=== PATIENT | male | born 1975 | race Caucasian/White ===

== ENCOUNTER 2017-10-23 11:13 | Day surgery (SDC) | payer OTHER ==
[~2017-10-23] VITALS: Ht 180.3 cm; Wt 73.5 kg
[~2017-10-23 11:13] MED LIST: PREVACID30 MG PO; ROXICODONE5 MG PO
== END 2017-10-23 12:17 | disposition home or self-care (01) ==
LOC: PAIN 11:13 → SDC 11:45 → PAIN 11:45
DX: M54.16 Radiculopathy, lumbar region (principal); M51.26 Other intervertebral disc displacement, lumbar region; M46.96 Unspecified inflammatory spondylopathy, lumbar region; M51.36 Other intervertebral disc degeneration, lumbar region; F17.200 Nicotine dependence, unspecified, uncomplicated; Z88.6 Allergy status to analgesic agent; Z88.8 Allergy status to other drugs, medicaments and biological substances
CPT/HCPCS: J1030; J2250; S0020

== ENCOUNTER 2017-11-28 07:54 | Day surgery (SDC) | payer OTHER ==
[~2017-11-28] VITALS: Ht 180.3 cm; Wt 73.5 kg
== END 2017-11-28 09:20 | disposition home or self-care (01) ==
LOC: PAIN 07:54
PROC: B01B1ZZ Fluoroscopy of Spinal Cord using Low Osmolar Contrast (ICD-10-PCS; principal; 2017-11-28)
PROC: 3E0R33Z Introduction of Anti-inflammatory into Spinal Canal, Percutaneous Approach (ICD-10-PCS; principal; 2017-11-28)
PROC: 3E0R3BZ Introduction of Anesthetic Agent into Spinal Canal, Percutaneous Approach (ICD-10-PCS; principal; 2017-11-28)
DX: M50.13 Cervical disc disorder with radiculopathy, cervicothoracic region (principal); M46.92 Unspecified inflammatory spondylopathy, cervical region; M79.1 Myalgia; M51.36 Other intervertebral disc degeneration, lumbar region; F17.200 Nicotine dependence, unspecified, uncomplicated; Z79.891 Long term (current) use of opiate analgesic
CPT/HCPCS: J1100; J2250

== ENCOUNTER 2017-12-26 07:45 | Day surgery (SDC) | payer OTHER ==
[~2017-12-26] VITALS: Ht 180.3 cm; Wt 73.5 kg
[~2017-12-26 07:45] MED LIST changes: +PERCOCET 7.51 TABLET PO; -ROXICODONE5 MG PO; +VITAMIN B COMP1 EACH PO; +ZANAFLEX4 M1 PO
== END 2017-12-26 09:08 | disposition home or self-care (01) ==
LOC: PAIN 07:45
DX: M54.12 Radiculopathy, cervical region (principal); M50.90 Cervical disc disorder, unspecified, unspecified cervical region; M46.92 Unspecified inflammatory spondylopathy, cervical region; F17.200 Nicotine dependence, unspecified, uncomplicated
CPT/HCPCS: J1100; J2250